=== PATIENT | male | born 1990 | race African-American/Black ===

== ENCOUNTER 2019-05-10 11:41 | Emergency (ER) | payer SELFPAY ==
[~2019-05-10] VITALS: Ht 182.9 cm; Wt 100.0 kg
[2019-05-10 13:07] LABS: URINE BILIRUBIN - DIPSTICK NEGATIVE (NEGATIVE); URINE BLOOD DIPSTICK NEGATIVE (NEGATIVE); URINE COLOR YELLOW; URINE GLUCOSE - DIPSTICK NEGATIVE (NEGATIVE); URINE KETONE NEGATIVE (NEGATIVE); URINE LEUK ESTERASE NEGATIVE (NEGATIVE); URINE NITRITE - DIPSTICK NEGATIVE (Negative); URINE PROTEIN - DIPSTICK NEGATIVE (NEG-TRACE); URINE SPECIFIC GRAVITY 1.025; URINE UROBILINOGEN - DIPSTICK 0.2 E.U./dL (0.2)
[2019-05-10] MEDS ORDERED: DOXYCYCL HYC100 MG PO (13:22)
[2019-05-10 13:28] VITALS: BP 144/90
== END 2019-05-10 13:35 | disposition home or self-care (01) | DRG 728 ==
LOC: ED 11:41
PROVIDERS: Emergency Medicine
DX: A64 Unspecified sexually transmitted disease (principal); R30.9 Painful micturition, unspecified